=== PATIENT | female | born 1980 | race Asian ===

== ENCOUNTER 2018-09-13 17:28 | Outpatient (CLI) | payer MEDICAID ==
[2018-09-13 17:47] LABS: ADD UMIC NO; UR ASCORBIC ACID NEGATIVE (NEGATIVE); UR BILIRUBIN (Dip) NEGATIVE (NEGATIVE); UR BLOOD (Dip) NEGATIVE (NEGATIVE); UR CLARITY CLEAR (CLEAR); UR COLOR STRAW (YELLOW); UR GLUCOSE (Dip) NEGATIVE (NEGATIVE); UR KETONES (Dip) NEGATIVE (NEGATIVE); UR LEUKOCYTE ESTERASE (Dip) NEGATIVE Leu/ul (NEGATIVE); UR NITRITE (Dip) NEGATIVE (NEGATIVE); UR SPECIFIC GRAVITY (Dip) 1.002 (1.003-1.030); UR TOTAL PROTEIN (Dip) NEGATIVE (NEGATIVE); UR UROBILINOGEN (Dip) NEGATIVE (NEGATIVE)
[2018-09-13 17:59] LABS: ADD MAN DIFF? NO
[2018-09-13 18:00] LABS: WHITE BLOOD COUNT 8.6 10^3/ul (4.8-10.8)
[2018-09-13 18:00] LABS: BASOPHILS % 0.2 % (0.0-2.0); EOSINOPHILS # 0.1 10^3/ul (0.0-0.5); EOSINOPHILS % 1.4 % (0.0-7.0); HEMATOCRIT 35.4 % (37.0-47.0); HEMOGLOBIN 11.9 g/dl (12.0-16.0); LYMPHOCYTES # 1.7 10^3/ul (0.8-2.9); LYMPHOCYTES % 19.6 % (15.0-51.0); MEAN CORPUSCULAR HEMOGLOBIN 31.2 pg (29.0-33.0); MEAN CORPUSCULAR HGB CONC 33.6 g/dl (32.0-37.0); MEAN CORPUSCULAR VOLUME 92.9 fl (82.0-101.0); MEAN PLATELET VOLUME 10.9 fl (7.4-10.4); MONOCYTE # 0.8 10^3/ul (0.3-0.9); MONOCYTES % 9.7 % (0.0-11.0); NEUTROPHIL # 5.9 10^3/ul (1.6-7.5); NEUTROPHILS % 68.5 % (39.0-77.0); PLATELET COUNT 236 10^3/UL (140-415); RED BLOOD COUNT 3.81 10^6/ul (4.20-5.40); RED CELL DISTRIBUTION WIDTH 12.9 % (11.5-14.5)
[2018-09-13 18:20] LABS: PROTIME 11.2 Sec (11.9-14.9); PT RATIO 0.9
[2018-09-13 18:21] LABS: PARTIAL THROMBOPLASTIN TIME 31.5 Sec (23.0-35.0)
[2018-09-13 18:27] LABS: ALANINE AMINOTRANSFERASE 17 IU/L (13-69); ALBUMIN 3.6 g/dl (3.3-4.9); ALBUMIN/GLOBULIN RATIO 0.87; ALKALINE PHOSPHATASE 181 IU/L (42-121); ANION GAP 8 (5-13); ASPARTATE AMINO TRANSFERASE 30 IU/L (15-46); BILIRUBIN,INDIRECT 0.3 mg/dl (0-1.1); BILIRUBIN,TOTAL 0.3 mg/dl (0.2-1.3); BLOOD UREA NITROGEN 10 mg/dl (7-20); CALCIUM 9.2 mg/dl (8.4-10.2); CARBON DIOXIDE 20 mmol/L (21-31); CHLORIDE 108 mmol/L (97-110); CREATININE 0.83 mg/dl (0.44-1.00); Estimated GFR > 60 mL/min (>60); GLUCOSE 87 mg/dl (70-220); POTASSIUM 4.2 mmol/L (3.5-5.1); SODIUM 136 mmol/L (135-144); TOTAL PROTEIN 7.7 g/dl (6.1-8.1); URIC ACID 5.7 mg/dl (3.1-7.9)
== END 2018-09-13 20:24 | disposition home or self-care (01) ==
LOC: OBT 17:28 → L-D 17:29 → OBT 20:24
DX: O13.3 Gestational [pregnancy-induced] hypertension without significant proteinuria, third trimester (principal); Z3A.39 39 weeks gestation of pregnancy
CPT/HCPCS: 76818; 80053; 81003; 84560; 85025; 85610; 85730

== ENCOUNTER 2018-09-20 00:05 | Inpatient (IN) | payer MEDICAID ==
[2018-09-20] MEDS ORDERED: BUTORPHANOL 2 MG INJ IV (03:30)
[2018-09-20] MEDS ORDERED: IBUPROFEN 600 MG TAB PO (03:30)
[2018-09-20] MEDS ORDERED: CARBOPROST 250 MCG INJ IM (03:30)
[2018-09-20] MEDS ORDERED: METHYLERGONOVINE 0.2 MG INJ IM (03:30)
[2018-09-20] MEDS ORDERED: OXYTOCIN 30 UNITS/LR 500 ML IV ×2 (03:30)
[2018-09-20] MEDS ORDERED: LIDOCAINE 1% (MPF) 30 ML INJ INJ (03:30)
[2018-09-20] MEDS ORDERED: MISOPROSTOL 200 MCG TAB PR (03:30)
[2018-09-20] MEDS: LACTATED RINGER'S 1,000 ML IV ×5 (05:21→23:27)
[2018-09-20 05:50] LABS: ADD MAN DIFF? NO
[2018-09-20 05:56] LABS: BASOPHILS % 0.3 % (0.0-2.0); EOSINOPHILS # 0.1 10^3/ul (0.0-0.5); EOSINOPHILS % 1.3 % (0.0-7.0); LYMPHOCYTES # 2.3 10^3/ul (0.8-2.9); LYMPHOCYTES % 23.9 % (15.0-51.0); MEAN CORPUSCULAR HGB CONC 33.3 g/dl (32.0-37.0); MEAN PLATELET VOLUME 11.7 fl (7.4-10.4); MONOCYTE # 0.8 10^3/ul (0.3-0.9); MONOCYTES % 8.7 % (0.0-11.0); NEUTROPHIL # 6.2 10^3/ul (1.6-7.5); NUCLEATED RED BLOOD CELLS% 0.2 /100WBC (0.0-0.0); PLATELET COUNT 211 10^3/UL (140-415); RED BLOOD COUNT 3.75 10^6/ul (4.20-5.40); RED CELL DISTRIBUTION WIDTH 13.2 % (11.5-14.5)
[2018-09-20 05:56] LABS: WHITE BLOOD COUNT 9.5 10^3/ul (4.8-10.8)
[2018-09-20] MEDS: AMPICILLIN 2 GM/NS (PMX) 100 ML IV (06:02)
[2018-09-20 06:16] LABS: INR 0.77; PROTIME 10.9 Sec (11.9-14.9); PT RATIO 0.9
[2018-09-20 06:17] LABS: PARTIAL THROMBOPLASTIN TIME 29.8 Sec (23.0-35.0)
[2018-09-20] MEDS: OXYTOCIN 30 UNITS/LR 500 ML IV (06:27)
[2018-09-20 06:48] LABS: HEPATITIS B SURFACE ANTIGEN NEGATIVE (NEGATIVE)
[2018-09-20] MEDS: AMPICILLIN 1 GM/NS (PMX) 50 ML IV ×5 (07:30→23:30)
[2018-09-20] MEDS: BUTORPHANOL 2 MG INJ IV ×2 (09:47→12:45)
[2018-09-20] MEDS ORDERED: FENTAnyl 2MCG/ML-ROPIV 0.2% 100 ML (14:14)
[2018-09-20] MEDS ORDERED: KETOROLAC 30 MG INJ IV (14:30)
[2018-09-20] MEDS ORDERED: NALOXONE (0.4 MG/ML) INJ IV (14:30)
[2018-09-20] MEDS ORDERED: ONDANSETRON 4 MG INJ IV (14:30)
[2018-09-20] MEDS ORDERED: HYDROmorphONE 0.5 MG/0.5 ML SYG IV ×2 (14:30)
[2018-09-20] MEDS ORDERED: DIPHENHYDRAMINE 50 MG INJ IV (14:30)
[2018-09-20 22:04] LABS: RAPID PLASMA REAGIN NONREACTIVE (NR)
[2018-09-20] MEDS: FENTAnyl 2MCG/ML-ROPIV 0.2% 100 ML BAG EPI ×2 (22:10→23:39)
[2018-09-21] MEDS: AMPICILLIN 1 GM/NS (PMX) 50 ML IV ×2 (03:58→07:48)
[2018-09-21] MEDS: FENTAnyl 2MCG/ML-ROPIV 0.2% 100 ML BAG EPI (05:34)
[2018-09-21] MEDS: LACTATED RINGER'S 1,000 ML IV (06:22)
[2018-09-21] MEDS ORDERED: ACETAMINOPHEN 500 MG TAB PO (08:00)
[2018-09-21] MEDS: OXYTOCIN 30 UNITS/LR 500 ML IV ×2 (08:13→12:22)
[2018-09-21] MEDS: MINERAL OIL LIGHT 10 ML VIAL TOP (08:16)
[2018-09-21] MEDS ORDERED: OXYCODONE/ASPIRIN (4.88/325) TAB PO (08:30)
[2018-09-21] MEDS ORDERED: ONDANSETRON 4 MG INJ IV (08:30)
[2018-09-21] MEDS ORDERED: OXYTOCIN 30 UNITS/LR 500 ML IV (08:30)
[2018-09-21] MEDS ORDERED: CARBOPROST 250 MCG INJ IM (08:30)
[2018-09-21] MEDS ORDERED: LANOLIN HPA 1 PKT TOP (08:30)
[2018-09-21] MEDS ORDERED: METHYLERGONOVINE 0.2 MG INJ IM (08:30)
[2018-09-21] MEDS ORDERED: NACL 0.9% 3 ML SYG IV (08:30)
[2018-09-21] MEDS ORDERED: MISOPROSTOL 200 MCG TAB PR (08:30)
[2018-09-21] MEDS: BENZOCAINE 20% 56 ML SPRAY TOP (12:20)
[2018-09-21] MEDS: WITCH HAZEL/GLYCERIN PAD PR (12:20)
[2018-09-21] MEDS: IBUPROFEN 800 MG TAB PO ×3 (12:21→23:48)
[2018-09-22 05:08] LABS: ADD MAN DIFF? NO
[2018-09-22] MEDS: IBUPROFEN 800 MG TAB PO ×3 (05:32→17:36)
[2018-09-22 06:50] LABS: WHITE BLOOD COUNT 18.9 10^3/ul (4.8-10.8)
[2018-09-22 06:50] LABS: BASOPHIL # 0.1 10^3/ul (0.0-0.1); BASOPHILS % 0.3 % (0.0-2.0); EOSINOPHILS # 0.3 10^3/ul (0.0-0.5); EOSINOPHILS % 1.7 % (0.0-7.0); HEMATOCRIT 24.8 % (37.0-47.0); HEMOGLOBIN 8.2 g/dl (12.0-16.0); LYMPHOCYTES # 2.5 10^3/ul (0.8-2.9); LYMPHOCYTES % 13.4 % (15.0-51.0); MEAN CORPUSCULAR HEMOGLOBIN 32.2 pg (29.0-33.0); MEAN CORPUSCULAR HGB CONC 33.1 g/dl (32.0-37.0); MEAN CORPUSCULAR VOLUME 97.3 fl (82.0-101.0); MEAN PLATELET VOLUME 11.3 fl (7.4-10.4); MONOCYTE # 1.2 10^3/ul (0.3-0.9); MONOCYTES % 6.2 % (0.0-11.0); NEUTROPHIL # 14.7 10^3/ul (1.6-7.5); NEUTROPHILS % 77.6 % (39.0-77.0); NUCLEATED RED BLOOD CELLS% 0.2 /100WBC (0.0-0.0); PLATELET COUNT 137 10^3/UL (140-415); RED BLOOD COUNT 2.55 10^6/ul (4.20-5.40); RED CELL DISTRIBUTION WIDTH 13.4 % (11.5-14.5)
[2018-09-22] MEDS: BISACODYL 10 MG SUPP PR (15:52)
[2018-09-22] MEDS: DOCUSATE SODIUM 100 MG CAP PO (21:28)
[2018-09-23] MEDS: IBUPROFEN 800 MG TAB PO ×3 (00:38→12:10)
[2018-09-23 04:48] LABS: ADD MAN DIFF? NO
[2018-09-23 05:03] LABS: BASOPHILS % 0.2 % (0.0-2.0); EOSINOPHILS # 0.3 10^3/ul (0.0-0.5); EOSINOPHILS % 1.6 % (0.0-7.0); HEMOGLOBIN 7.8 g/dl (12.0-16.0); LYMPHOCYTES # 2.1 10^3/ul (0.8-2.9); LYMPHOCYTES % 11.9 % (15.0-51.0); MEAN CORPUSCULAR HEMOGLOBIN 31.8 pg (29.0-33.0); MEAN CORPUSCULAR HGB CONC 32.5 g/dl (32.0-37.0); MEAN PLATELET VOLUME 10.3 fl (7.4-10.4); MONOCYTE # 1.2 10^3/ul (0.3-0.9); MONOCYTES % 6.9 % (0.0-11.0); NEUTROPHIL # 13.5 10^3/ul (1.6-7.5); NEUTROPHILS % 78.1 % (39.0-77.0); NUCLEATED RED BLOOD CELLS% 0.1 /100WBC (0.0-0.0); PLATELET COUNT 165 10^3/UL (140-415); RED BLOOD COUNT 2.45 10^6/ul (4.20-5.40); RED CELL DISTRIBUTION WIDTH 13.3 % (11.5-14.5)
[2018-09-23 05:03] LABS: WHITE BLOOD COUNT 17.3 10^3/ul (4.8-10.8)
[2018-09-23] MEDS: DOCUSATE SODIUM 100 MG CAP PO (08:39)
== END 2018-09-23 13:45 | disposition home or self-care (01) | DRG 807 ==
LOC: OBT 00:05 → L-D 00:05 → MS1 09-21 10:15 → L-D 00:32 → MS1 09-21 11:46 → OBT 02:30 → L-D 02:30
PROVIDERS: Obstetrics & Gynecology
PROC: 3E033VJ Introduction of Other Hormone into Peripheral Vein, Percutaneous Approach (ICD-10-PCS; 2018-09-20)
PROC: 10E0XZZ Delivery of Products of Conception, External Approach (ICD-10-PCS; principal; 2018-09-21)
PROC: 0HQ9XZZ Repair Perineum Skin, External Approach (ICD-10-PCS; 2018-09-21)
DX: O70.0 First degree perineal laceration during delivery (principal); O99.824 Streptococcus B carrier state complicating childbirth; Z37.0 Single live birth; Z3A.38 38 weeks gestation of pregnancy
CPT/HCPCS: 62322; 76815; 76818; 85025; 85610; 85730; 86592; 86850; 86900; 86901; 87340